=== PATIENT | male | born 1980 | race Caucasian/White ===

== ENCOUNTER 2016-09-22 14:27 | Emergency (ER) | payer OTHER ==
[~2016-09-22] VITALS: Ht 193 cm; Wt 90.1 kg
[2016-09-22 14:29] VITALS: BP 126/73
[2016-09-22 15:28] LABS: BLOOD UREA NITROGEN 16 mg/dL (7-18)
== END 2016-09-22 16:53 | disposition home or self-care (01) ==
LOC: ED 16:52
DX: L03.116 Cellulitis of left lower limb (principal)
CPT/HCPCS: 36415; 80048; 82040; 85025; 85651; 86141; 99285

== ENCOUNTER → 2016-09-30 | Outpatient (CLI) | payer OTHER | END | disposition home or self-care (01) | LOC: WOUND 08:29 | PROVIDERS: ATTEND Physician Assistant | DX: S81.822D Laceration with foreign body, left lower leg, subsequent encounter (principal); Z87.891 Personal history of nicotine dependence; Z72.89 Other problems related to lifestyle; X58.XXXD Exposure to other specified factors, subsequent encounter | CPT/HCPCS: 99215 ==

== ENCOUNTER → 2016-10-11 | Outpatient (CLI) | payer OTHER | END | disposition home or self-care (01) | LOC: WOUND 13:15 | PROVIDERS: ATTEND Nurse Practitioner Family | DX: S81.822D Laceration with foreign body, left lower leg, subsequent encounter (principal); X58.XXXD Exposure to other specified factors, subsequent encounter; Y92.89 Other specified places as the place of occurrence of the external cause; Y99.8 Other external cause status; Z87.891 Personal history of nicotine dependence; Z72.89 Other problems related to lifestyle | CPT/HCPCS: 99214 ==